=== PATIENT | female | born 1940 | race Caucasian/White ===

== ENCOUNTER 2017-11-09 16:36 | Emergency (ER) | payer OTHER ==
[2017-11-09 17:03] LABS: ADD MAN DIFF? NO
[2017-11-09 17:05] LABS: BASOPHILS % 0.3 % (0.0-2.0); EOSINOPHILS # 0.3 10^3/ul (0.0-0.5); EOSINOPHILS % 4.6 % (0.0-7.0); HEMATOCRIT 32.4 % (37.0-47.0); LYMPHOCYTES # 2.6 10^3/ul (0.8-2.9); LYMPHOCYTES % 41.4 % (15.0-51.0); MEAN CORPUSCULAR HEMOGLOBIN 30.4 pg (29.0-33.0); MEAN CORPUSCULAR VOLUME 89.5 fl (82.0-101.0); MEAN PLATELET VOLUME 11.2 fl (7.4-10.4); MONOCYTE # 0.4 10^3/ul (0.3-0.9); NEUTROPHILS % 46.5 % (39.0-77.0); PLATELET COUNT 249 10^3/UL (140-415); RED BLOOD COUNT 3.62 10^6/ul (4.20-5.40); RED CELL DISTRIBUTION WIDTH 12.6 % (11.5-14.5)
[2017-11-09 17:05] LABS: WHITE BLOOD COUNT 6.3 10^3/ul (4.8-10.8)
[2017-11-09] MEDS: NITROGLYCERIN 2% 1 GM OINT PKT TD (17:21)
[2017-11-09 17:24] LABS: ALANINE AMINOTRANSFERASE 38 IU/L (13-69); ALBUMIN 3.9 g/dl (3.3-4.9); ALBUMIN/GLOBULIN RATIO 1.21; ALKALINE PHOSPHATASE 70 IU/L (42-121); ANION GAP 15 (8-16); ASPARTATE AMINO TRANSFERASE 28 IU/L (15-46); BILIRUBIN,INDIRECT 0.2 mg/dl (0-1.1); BILIRUBIN,TOTAL 0.2 mg/dl (0.2-1.3); BLOOD UREA NITROGEN 15 mg/dl (7-20); CALCIUM 10.6 mg/dl (8.4-10.2); CARBON DIOXIDE 26 mmol/L (21-31); CHLORIDE 105 mmol/L (97-110); CREATININE 0.57 mg/dl (0.44-1.00); GLUCOSE 169 mg/dl (70-220); POTASSIUM 3.6 mmol/L (3.5-5.1); SODIUM 142 mmol/L (135-144); TOTAL PROTEIN 7.1 g/dl (6.1-8.1)
[2017-11-09 17:25] LABS: INR 1.24; PROTIME 15.8 Sec (11.9-14.9); PT RATIO 1.2
[2017-11-09 17:26] LABS: PARTIAL THROMBOPLASTIN TIME 35.9 Sec (25.0-35.0)
[2017-11-09 17:43] LABS: TROPONIN-I < 0.012 ng/ml (0.00-0.12)
[2017-11-09] MEDS ORDERED: ONDANSETRON 4 MG INJ IV (19:00)
[2017-11-09] MEDS ORDERED: ACETAMINOPHEN 325 MG TAB PO (19:00)
[2017-11-09] MEDS: LACTATED RINGER'S 1,000 ML IV (20:00)
[2017-11-09] MEDS ORDERED: morphine 2 MG INJ IV (21:00)
[2017-11-09] MEDS: GABAPENTIN 100 MG CAP PO (23:17)
[2017-11-09] MEDS: ATORVASTATIN 20 MG TAB PO (23:18)
[2017-11-09] MEDS: METOPROLOL (XL) 50 MG TAB PO (23:27)
[2017-11-09 23:52] LABS: TROPONIN-I < 0.012 ng/ml (0.00-0.12)
[2017-11-10] MEDS: GABAPENTIN 100 MG CAP PO ×3 (08:31→21:33)
[2017-11-10] MEDS: METOPROLOL (XL) 50 MG TAB PO ×2 (08:31→21:37)
[2017-11-10 09:32] LABS: TROPONIN-I < 0.012 ng/ml (0.00-0.12)
[2017-11-10 13:02] LABS: ANION GAP 15 (8-16); BLOOD UREA NITROGEN 15 mg/dl (7-20); CALCIUM 10.7 mg/dl (8.4-10.2); CARBON DIOXIDE 29 mmol/L (21-31); CHLORIDE 106 mmol/L (97-110); CREATININE 0.56 mg/dl (0.44-1.00); GLUCOSE 101 mg/dl (70-220); POTASSIUM 4.3 mmol/L (3.5-5.1); SODIUM 146 mmol/L (135-144)
[2017-11-10 15:06] LABS: ANION GAP 9 (8-16); BLOOD UREA NITROGEN 18 mg/dl (7-20); CALCIUM 10.8 mg/dl (8.4-10.2); CARBON DIOXIDE 32 mmol/L (21-31); CHLORIDE 105 mmol/L (97-110); GLUCOSE 116 mg/dl (70-220); PHOSPHORUS 3.4 mg/dl (2.5-4.9); POTASSIUM 4.4 mmol/L (3.5-5.1); SODIUM 142 mmol/L (135-144)
[2017-11-10] MEDS: ATORVASTATIN 20 MG TAB PO (21:33)
[2017-11-10] MEDS: APIXABAN 5 MG TABLET PO (21:33)
[2017-11-11] MEDS: APIXABAN 5 MG TABLET PO (09:26)
[2017-11-11] MEDS: GABAPENTIN 100 MG CAP PO ×2 (09:26→13:29)
[2017-11-11] MEDS: METOPROLOL (XL) 50 MG TAB PO (09:27)
[2017-11-11 09:49] LABS: ANION GAP 14 (8-16); BLOOD UREA NITROGEN 15 mg/dl (7-20); CALCIUM 10.7 mg/dl (8.4-10.2); CARBON DIOXIDE 30 mmol/L (21-31); CHLORIDE 105 mmol/L (97-110); CREATININE 0.58 mg/dl (0.44-1.00); GLUCOSE 102 mg/dl (70-220); POTASSIUM 4.5 mmol/L (3.5-5.1); SODIUM 144 mmol/L (135-144)
[2017-11-11 17:21] LABS: PTH CALCIUM 10.8 mg/dL (8.6-10.4)
[2017-11-12 07:46] LABS: PTH INTACT 74 pg/mL (14-64)
== END 2017-11-11 14:59 | disposition home or self-care (01) ==
LOC: E/R 16:36 → MS4 19:48
DX: R07.9 Chest pain, unspecified (principal); I48.91 Unspecified atrial fibrillation; E83.52 Hypercalcemia; I10 Essential (primary) hypertension; I25.10 Atherosclerotic heart disease of native coronary artery without angina pectoris; I25.2 Old myocardial infarction; Z79.82 Long term (current) use of aspirin
CPT/HCPCS: 36415; 71045; 80048; 80053; 82306; 83970; 84100; 84484; 85025; 85610; 85730; 93005; 99285-25; G0378

== ENCOUNTER 2018-07-05 19:19 | Inpatient (IN) | payer OTHER ==
[2018-07-05] MEDS: NITROGLYCERIN 2% 1 GM OINT PKT TD (19:22)
[2018-07-05] MEDS ORDERED: NITROGLYCERIN (SL) 0.4 MG TAB SL (19:30)
[2018-07-05 19:35] LABS: ADD MAN DIFF? NO
[2018-07-05 19:36] LABS: BASOPHILS % 0.4 % (0.0-2.0); EOSINOPHILS # 0.2 10^3/ul (0.0-0.5); EOSINOPHILS % 2.7 % (0.0-7.0); HEMATOCRIT 35.2 % (37.0-47.0); HEMOGLOBIN 11.4 g/dl (12.0-16.0); LYMPHOCYTES # 3.4 10^3/ul (0.8-2.9); LYMPHOCYTES % 42.5 % (15.0-51.0); MEAN CORPUSCULAR HEMOGLOBIN 28.8 pg (29.0-33.0); MEAN CORPUSCULAR HGB CONC 32.4 g/dl (32.0-37.0); MEAN CORPUSCULAR VOLUME 88.9 fl (82.0-101.0); MEAN PLATELET VOLUME 10.9 fl (7.4-10.4); MONOCYTE # 0.5 10^3/ul (0.3-0.9); MONOCYTES % 6.5 % (0.0-11.0); NEUTROPHIL # 3.9 10^3/ul (1.6-7.5); NEUTROPHILS % 47.8 % (39.0-77.0); PLATELET COUNT 280 10^3/UL (140-415); RED BLOOD COUNT 3.96 10^6/ul (4.20-5.40); RED CELL DISTRIBUTION WIDTH 13.2 % (11.5-14.5)
[2018-07-05 19:36] LABS: WHITE BLOOD COUNT 8.1 10^3/ul (4.8-10.8)
[2018-07-05] MEDS: METOPROLOL 5 MG INJ IV (19:36)
[2018-07-05 19:52] LABS: ANION GAP 12 (5-13); BLOOD UREA NITROGEN 18 mg/dl (7-20); CALCIUM 11.1 mg/dl (8.4-10.2); CARBON DIOXIDE 25 mmol/L (21-31); CHLORIDE 107 mmol/L (97-110); GLUCOSE 119 mg/dl (70-220); POTASSIUM 3.7 mmol/L (3.5-5.1); SODIUM 144 mmol/L (135-144)
[2018-07-05 19:56] LABS: INR 1.14; PROTIME 14.8 Sec (11.9-14.9); PT RATIO 1.2
[2018-07-05 19:57] LABS: PARTIAL THROMBOPLASTIN TIME 35.1 Sec (23.0-35.0)
[2018-07-05 20:04] LABS: TROPONIN-I < 0.012 ng/ml (0.000-0.120)
[2018-07-05] MEDS ORDERED: ONDANSETRON 4 MG INJ IV (20:30)
[2018-07-05] MEDS ORDERED: ACETAMINOPHEN 325 MG TAB PO (20:30)
[2018-07-06] MEDS ORDERED: ACETAMINOPHEN 325 MG TAB PO
[2018-07-06] MEDS ORDERED: ONDANSETRON 4 MG INJ IV
[2018-07-06] MEDS ORDERED: NACL 0.9% 3 ML SYG IV
[2018-07-06] MEDS ORDERED: NITROGLYCERIN (SL) 0.4 MG TAB SL
[2018-07-06] MEDS ORDERED: traMADol 50 MG TAB PO
[2018-07-06] MEDS: METOPROLOL 25 MG TAB PO (00:11)
[2018-07-06 01:42] LABS: CREATINE KINASE 104 IU/L (23-200)
[2018-07-06 01:53] LABS: CK INDEX 2.6; CK-MB 2.68 ng/ml (0.0-2.4)
[2018-07-06 01:57] LABS: TROPONIN-I < 0.012 ng/ml (0.000-0.120)
[2018-07-06] MEDS: PANTOPRAZOLE (EC) 40 MG TAB PO (05:35)
[2018-07-06] MEDS: FISH OIL 1,000 MG CAP PO (08:34)
[2018-07-06] MEDS: METOPROLOL (XL) 50 MG TAB PO (08:34)
[2018-07-06] MEDS: ASPIRIN 81 MG TAB PO (08:34)
[2018-07-06] MEDS: MULTIVITAMINS THERAPEUTIC TAB PO (08:35)
[2018-07-06] MEDS: CHOLECALCIFEROL 1,000 UNIT TAB PO (08:35)
[2018-07-06] MEDS: GABAPENTIN 100 MG CAP PO ×3 (08:35→21:31)
[2018-07-06] MEDS: APIXABAN 5 MG TABLET PO ×2 (08:35→21:31)
[2018-07-06] MEDS: AMLODIPINE 5 MG TAB PO (08:35)
[2018-07-06 09:24] LABS: ADD MAN DIFF? NO
[2018-07-06 09:29] LABS: BASOPHILS % 0.3 % (0.0-2.0); EOSINOPHILS # 0.2 10^3/ul (0.0-0.5); EOSINOPHILS % 2.9 % (0.0-7.0); HEMATOCRIT 35.5 % (37.0-47.0); HEMOGLOBIN 11.3 g/dl (12.0-16.0); LYMPHOCYTES # 2.1 10^3/ul (0.8-2.9); LYMPHOCYTES % 34.2 % (15.0-51.0); MEAN CORPUSCULAR HEMOGLOBIN 28.8 pg (29.0-33.0); MEAN CORPUSCULAR HGB CONC 31.8 g/dl (32.0-37.0); MEAN CORPUSCULAR VOLUME 90.6 fl (82.0-101.0); MONOCYTE # 0.4 10^3/ul (0.3-0.9); MONOCYTES % 6.5 % (0.0-11.0); NEUTROPHIL # 3.4 10^3/ul (1.6-7.5); NEUTROPHILS % 55.9 % (39.0-77.0); PLATELET COUNT 268 10^3/UL (140-415); RED BLOOD COUNT 3.92 10^6/ul (4.20-5.40); RED CELL DISTRIBUTION WIDTH 13.5 % (11.5-14.5)
[2018-07-06 09:29] LABS: WHITE BLOOD COUNT 6.1 10^3/ul (4.8-10.8)
[2018-07-06 09:46] LABS: HEMOGLOBIN A1C 5.6 % (0-5.9)
[2018-07-06 09:47] LABS: CREATINE KINASE 117 IU/L (23-200)
[2018-07-06 09:50] LABS: ALANINE AMINOTRANSFERASE 29 IU/L (13-69); ALBUMIN 3.8 g/dl (3.3-4.9); ALBUMIN/GLOBULIN RATIO 1.18; ALKALINE PHOSPHATASE 76 IU/L (42-121); ANION GAP 11 (5-13); ASPARTATE AMINO TRANSFERASE 27 IU/L (15-46); BILIRUBIN,INDIRECT 0.5 mg/dl (0-1.1); BILIRUBIN,TOTAL 0.5 mg/dl (0.2-1.3); BLOOD UREA NITROGEN 14 mg/dl (7-20); CALCIUM 11.1 mg/dl (8.4-10.2); CARBON DIOXIDE 28 mmol/L (21-31); CHLORIDE 105 mmol/L (97-110); CHOLESTEROL 106 mg/dl (100-200); CREATININE 0.58 mg/dl (0.44-1.00); GLUCOSE 136 mg/dl (70-220); HDL CHOLESTEROL 21 mg/dl (33-92); LDL CHOLESTEROL,CALCULATED 69 mg/dl; MAGNESIUM 2.3 mg/dl (1.7-2.5); POTASSIUM 4.5 mmol/L (3.5-5.1); SODIUM 144 mmol/L (135-144); TRIGLYCERIDES 81 mg/dl (0-149)
[2018-07-06 09:59] LABS: CK INDEX 2.5; CK-MB 2.95 ng/ml (0.0-2.4); TROPONIN-I < 0.012 ng/ml (0.000-0.120)
[2018-07-06] MEDS: DIGOXIN 500 MCG INJ IV ×2 (17:34→23:57)
[2018-07-06] MEDS: ATORVASTATIN 20 MG TAB PO (21:31)
[2018-07-06] MEDS: METOPROLOL 50 MG TAB PO (21:32)
[2018-07-07] MEDS: PANTOPRAZOLE (EC) 40 MG TAB PO (05:47)
[2018-07-07] MEDS: GABAPENTIN 100 MG CAP PO ×3 (08:22→20:28)
[2018-07-07] MEDS: MULTIVITAMINS THERAPEUTIC TAB PO (08:22)
[2018-07-07] MEDS: CHOLECALCIFEROL 1,000 UNIT TAB PO (08:23)
[2018-07-07] MEDS: APIXABAN 5 MG TABLET PO ×2 (08:23→20:28)
[2018-07-07] MEDS: METOPROLOL 50 MG TAB PO ×2 (08:23→20:28)
[2018-07-07] MEDS: FISH OIL 1,000 MG CAP PO (08:23)
[2018-07-07] MEDS: ASPIRIN 81 MG TAB PO (08:23)
[2018-07-07] MEDS: AMLODIPINE 5 MG TAB PO (08:24)
[2018-07-07] MEDS: REGADENOSON 0.4 MG/5 ML SYG (14:22)
[2018-07-07] MEDS: ATORVASTATIN 20 MG TAB PO (20:28)
[2018-07-08] MEDS: PANTOPRAZOLE (EC) 40 MG TAB PO (05:32)
[2018-07-08] MEDS: APIXABAN 5 MG TABLET PO ×2 (08:02→21:38)
[2018-07-08] MEDS: FISH OIL 1,000 MG CAP PO (08:02)
[2018-07-08] MEDS: GABAPENTIN 100 MG CAP PO ×3 (08:02→21:29)
[2018-07-08] MEDS: ASPIRIN 81 MG TAB PO (08:02)
[2018-07-08] MEDS: CHOLECALCIFEROL 1,000 UNIT TAB PO (08:02)
[2018-07-08] MEDS: MULTIVITAMINS THERAPEUTIC TAB PO (08:02)
[2018-07-08] MEDS: AMLODIPINE 5 MG TAB PO (08:03)
[2018-07-08] MEDS: METOPROLOL 50 MG TAB PO (08:03)
[2018-07-08] MEDS ORDERED: ETOMIDATE 20 MG INJ (12:38)
[2018-07-08] MEDS ORDERED: PROPOFOL 20 ML (12:39)
[2018-07-08] MEDS: SOTALOL 80 MG TAB PO ×2 (15:19→21:33)
[2018-07-08] MEDS: ATORVASTATIN 20 MG TAB PO (21:29)
[2018-07-09] MEDS: PANTOPRAZOLE (EC) 40 MG TAB PO (05:38)
[2018-07-09 06:53] LABS: ADD MAN DIFF? NO
[2018-07-09 06:58] LABS: BASOPHILS % 0.3 % (0.0-2.0); EOSINOPHILS # 0.4 10^3/ul (0.0-0.5); EOSINOPHILS % 4.4 % (0.0-7.0); HEMATOCRIT 35.4 % (37.0-47.0); HEMOGLOBIN 11.5 g/dl (12.0-16.0); LYMPHOCYTES % 38.3 % (15.0-51.0); MEAN CORPUSCULAR HEMOGLOBIN 29.3 pg (29.0-33.0); MEAN CORPUSCULAR HGB CONC 32.5 g/dl (32.0-37.0); MEAN CORPUSCULAR VOLUME 90.1 fl (82.0-101.0); MEAN PLATELET VOLUME 11.1 fl (7.4-10.4); MONOCYTE # 0.4 10^3/ul (0.3-0.9); MONOCYTES % 5.5 % (0.0-11.0); NEUTROPHILS % 51.2 % (39.0-77.0); PLATELET COUNT 271 10^3/UL (140-415); RED BLOOD COUNT 3.93 10^6/ul (4.20-5.40); RED CELL DISTRIBUTION WIDTH 13.5 % (11.5-14.5)
[2018-07-09 06:58] LABS: WHITE BLOOD COUNT 7.9 10^3/ul (4.8-10.8)
[2018-07-09 07:16] LABS: ANION GAP 12 (5-13); BLOOD UREA NITROGEN 21 mg/dl (7-20); CALCIUM 11.6 mg/dl (8.4-10.2); CARBON DIOXIDE 25 mmol/L (21-31); CHLORIDE 104 mmol/L (97-110); CREATININE 0.69 mg/dl (0.44-1.00); GLUCOSE 200 mg/dl (70-220); POTASSIUM 4.8 mmol/L (3.5-5.1); SODIUM 141 mmol/L (135-144)
[2018-07-09 07:17] LABS: MAGNESIUM 2.1 mg/dl (1.7-2.5)
[2018-07-09] MEDS: FISH OIL 1,000 MG CAP PO (08:39)
[2018-07-09] MEDS: APIXABAN 5 MG TABLET PO ×2 (08:39→20:30)
[2018-07-09] MEDS: MULTIVITAMINS THERAPEUTIC TAB PO (08:39)
[2018-07-09] MEDS: CHOLECALCIFEROL 1,000 UNIT TAB PO (08:39)
[2018-07-09] MEDS: GABAPENTIN 100 MG CAP PO ×3 (08:39→20:30)
[2018-07-09] MEDS: SOTALOL 80 MG TAB PO ×2 (08:39→20:30)
[2018-07-09] MEDS: ASPIRIN 81 MG TAB PO (08:39)
[2018-07-09] MEDS: AMLODIPINE 5 MG TAB PO (08:39)
[2018-07-09] MEDS: AMOXICILLIN/CLAV 875 MG TAB PO ×2 (17:33→20:34)
[2018-07-09] MEDS: ATORVASTATIN 20 MG TAB PO (20:30)
[2018-07-10] MEDS: PANTOPRAZOLE (EC) 40 MG TAB PO (05:45)
[2018-07-10] MEDS: AMOXICILLIN/CLAV 875 MG TAB PO (08:18)
[2018-07-10] MEDS: CHOLECALCIFEROL 1,000 UNIT TAB PO (08:18)
[2018-07-10] MEDS: FISH OIL 1,000 MG CAP PO (08:19)
[2018-07-10] MEDS: ASPIRIN 81 MG TAB PO (08:19)
[2018-07-10] MEDS: MULTIVITAMINS THERAPEUTIC TAB PO (08:20)
[2018-07-10] MEDS: APIXABAN 5 MG TABLET PO (08:20)
[2018-07-10] MEDS: GABAPENTIN 100 MG CAP PO ×2 (08:21→12:08)
[2018-07-10] MEDS: AMLODIPINE 5 MG TAB PO (08:21)
[2018-07-10] MEDS: SOTALOL 80 MG TAB PO (08:21)
== END 2018-07-10 12:40 | disposition home or self-care (01) | DRG 310 ==
LOC: E/R 19:19 → TEL 20:15
PROC: 5A2204Z Restoration of Cardiac Rhythm, Single (ICD-10-PCS; principal; 2018-07-08 12:25)
DX: I48.0 Paroxysmal atrial fibrillation (principal); E78.5 Hyperlipidemia, unspecified; I25.10 Atherosclerotic heart disease of native coronary artery without angina pectoris; I10 Essential (primary) hypertension; Z95.5 Presence of coronary angioplasty implant and graft
CPT/HCPCS: 36415; 71045; 78452; 80048; 80053; 80061; 82550; 82553; 83036; 83735; 84443; 84484; 85025; 85610; 85730; 92960; 93005; 93017; 93306; 96374; 99285-25

== ENCOUNTER 2019-05-14 21:51 | Emergency (ER) | payer OTHER ==
[2019-05-14 22:45] LABS: ADD MAN DIFF? NO
[2019-05-14 22:48] LABS: WHITE BLOOD COUNT 8.6 10^3/ul (4.8-10.8)
[2019-05-14 22:48] LABS: BASOPHILS % 0.2 % (0.0-2.0); EOSINOPHILS # 0.2 10^3/ul (0.0-0.5); EOSINOPHILS % 1.9 % (0.0-7.0); HEMATOCRIT 34.3 % (37.0-47.0); HEMOGLOBIN 11.8 g/dl (12.0-16.0); MEAN CORPUSCULAR HEMOGLOBIN 30.2 pg (29.0-33.0); MEAN CORPUSCULAR HGB CONC 34.4 g/dl (32.0-37.0); MEAN CORPUSCULAR VOLUME 87.7 fl (82.0-101.0); MEAN PLATELET VOLUME 10.8 fl (7.4-10.4); MONOCYTE # 0.6 10^3/ul (0.3-0.9); MONOCYTES % 7.2 % (0.0-11.0); NEUTROPHIL # 4.8 10^3/ul (1.6-7.5); NEUTROPHILS % 55.5 % (39.0-77.0); PLATELET COUNT 295 10^3/UL (140-415); RED BLOOD COUNT 3.91 10^6/ul (4.20-5.40); RED CELL DISTRIBUTION WIDTH 12.3 % (11.5-14.5)
[2019-05-14 23:06] LABS: ANION GAP 9 (5-13); BLOOD UREA NITROGEN 17 mg/dl (7-20); CALCIUM 11.3 mg/dl (8.4-10.2); CARBON DIOXIDE 28 mmol/L (21-31); CHLORIDE 96 mmol/L (97-110); CREATININE 0.53 mg/dl (0.44-1.00); GLUCOSE 106 mg/dl (70-220); POTASSIUM 3.3 mmol/L (3.5-5.1); SODIUM 133 mmol/L (135-144)
[2019-05-14 23:19] LABS: B-TYPE NATRIURETIC PEPTIDE 78 PG/ML (0-450); TROPONIN-I < 0.012 ng/ml (0.000-0.120)
[2019-05-14 23:27] LABS: ALANINE AMINOTRANSFERASE 33 IU/L (13-69); ALBUMIN 3.8 g/dl (3.3-4.9); ALKALINE PHOSPHATASE 75 IU/L (42-121); ASPARTATE AMINO TRANSFERASE 35 IU/L (15-46); BILIRUBIN,INDIRECT 0.7 mg/dl (0-1.1); BILIRUBIN,TOTAL 0.7 mg/dl (0.2-1.3); TOTAL PROTEIN 6.8 g/dl (6.1-8.1)
[2019-05-14 23:41] LABS: ADD UMIC NO; UR ASCORBIC ACID NEGATIVE (NEGATIVE); UR BILIRUBIN (Dip) NEGATIVE (NEGATIVE); UR BLOOD (Dip) NEGATIVE (NEGATIVE); UR CLARITY CLEAR (CLEAR); UR COLOR COLORLESS (YELLOW); UR GLUCOSE (Dip) NEGATIVE (NEGATIVE); UR KETONES (Dip) NEGATIVE (NEGATIVE); UR LEUKOCYTE ESTERASE (Dip) NEGATIVE Leu/ul (NEGATIVE); UR NITRITE (Dip) NEGATIVE (NEGATIVE); UR SPECIFIC GRAVITY (Dip) 1.003 (1.003-1.030); UR TOTAL PROTEIN (Dip) NEGATIVE (NEGATIVE); UR UROBILINOGEN (Dip) NEGATIVE (NEGATIVE)
[2019-05-14] MEDS: SOD CHLORIDE 0.9% 1,000 ML IV (23:42)
== END 2019-05-15 02:10 | disposition home or self-care (01) ==
LOC: E/R 21:51
DX: E83.52 Hypercalcemia (principal); E86.0 Dehydration; I10 Essential (primary) hypertension; I25.10 Atherosclerotic heart disease of native coronary artery without angina pectoris; R40.2142 Coma scale, eyes open, spontaneous, at arrival to emergency department; R40.2252 Coma scale, best verbal response, oriented, at arrival to emergency department; R40.2362 Coma scale, best motor response, obeys commands, at arrival to emergency department; Z98.61 Coronary angioplasty status; Z79.82 Long term (current) use of aspirin
CPT/HCPCS: 36415; 71045; 80048; 80076; 81003; 82962; 83605; 83880; 84484; 85025; 93005; 99285-25